=== PATIENT | female | born 1980 | race African-American/Black ===

== ENCOUNTER 2020-08-24 02:41 | Emergency (ER) | payer MEDICAID ==
[~2020-08-24] VITALS: Ht 149.9 cm; Wt 64.0 kg
[2020-08-24] MEDS ORDERED: SODIUM CHLORIDE 0.9% 1,000 ML IV ONE (06:13)
[2020-08-24 07:15] LABS: BASOPHILS % 0.7 % (0.0-2.0); EOSINOPHILS % 1.1 % (0.0-5.0); HEMATOCRIT. 40.1 % (36.0-48.0); HEMOGLOBIN. 12.9 g/dL (12.0-16.0); LYMPHOCYTES % 31.5 % (20.0-50.0); MEAN CORPUSCULAR HEMOGLOBIN 24.9 pg (28.0-32.0); MEAN CORPUSCULAR VOLUME 77.4 fL (81.0-99.0); MEAN PLATELET VOLUME 8.1 fl (7.4-10.4); MONOCYTES % 5.2 % (2.0-8.0); NEUTROPHILS % 61.5 % (40.0-76.0); PLATELET 352 x1000/uL (130-400); RED BLOOD CELL COUNT 5.18 mill/uL (4.2-5.4); RED CELL DISTRIBUTION WIDTH 15.3 % (11.6-14.6)
[2020-08-24 07:24] LABS: CHLORIDE 110 mEq/L (98-107)
[2020-08-24] MEDS ORDERED: LIDOCAINE HCL/PF 1% 10 MG/ML 5ML VIAL IJ ONE (07:30)
[2020-08-24] MEDS ORDERED: TETANUS, DIPHTHERIA, PERTUSSIS VAC/PF 0.5ML (>7YR OLD) IM ONE (07:30)
[2020-08-24 07:32] LABS: ETHANOL BLOOD 184 mg/dL
[2020-08-24 07:43] LABS: HCG SCREEN NEGATIVE
[2020-08-24 08:07] LABS: *BARBITURATES SCREEN URINE NEGATIVE (NEGATIVE)
[2020-08-24 08:08] LABS: *BENZODIAZEPINES SCREEN URINE NEGATIVE (NEGATIVE); *COCAINE SCREEN URINE NEGATIVE (NEGATIVE); METHADONE URINE SCREEN NEGATIVE (NEGATIVE); OPIATES URINE SCREEN NEGATIVE (NEGATIVE); PHENCYCLIDINE URINE SCREEN NEGATIVE (NEGATIVE)
[2020-08-24 08:15] LABS: *AMPHETAMINES SCREEN URINE PRESUMTIVE POSITIVE (NEGATIVE); CANNABINOID URINE SCREEN PRESUMTIVE POSITIVE (NEGATIVE)
[2020-08-24] MEDS ORDERED: BACITRACIN ZINC OINT UDPKT TOP ONE (08:15)
[2020-08-24 09:30] VITALS: BP 113/69
== END 2020-08-24 09:37 | disposition home or self-care (01) ==
LOC: ER 02:41
DX: S01.511A Laceration without foreign body of lip, initial encounter (principal); F15.10 Other stimulant abuse, uncomplicated; F10.129 Alcohol abuse with intoxication, unspecified; Y90.6 Blood alcohol level of 120-199 mg/100 ml; W18.39XA Other fall on same level, initial encounter; Y93.89 Activity, other specified; Y92.89 Other specified places as the place of occurrence of the external cause; Y99.8 Other external cause status
CPT/HCPCS: 12011; 36415; 70450; 70486; 80053; 80305; 80320; 81025; 84484; 84703; 85025; 90715; 96360; 96361; 99285; J3490; J7030; G0480

== ENCOUNTER 2020-08-29 20:30 | Emergency (ER) | payer MEDICAID ==
[~2020-08-29] VITALS: Ht 149.9 cm; Wt 64.0 kg
[2020-08-29 22:13] VITALS: BP 121/78
== END 2020-08-29 22:18 | disposition home or self-care (01) ==
LOC: ER 20:30
DX: S01.511D Laceration without foreign body of lip, subsequent encounter (principal); F15.10 Other stimulant abuse, uncomplicated; X58.XXXD Exposure to other specified factors, subsequent encounter
CPT/HCPCS: 99281

== ENCOUNTER 2025-11-14 08:02 | Emergency (ER) | payer MEDICAID ==
[~2025-11-14] VITALS: Ht 149.9 cm; Wt 72.0 kg
[2025-11-14 08:06] VITALS: O2SAT 100
[2025-11-14 08:51] LABS: CLARITY URINE CLOUDY (CLEAR); COLOR URINE YELLOW (YELLOW); GLUCOSE URINE NEGATIVE (NEGATIVE); KETONES URINE NEGATIVE (NEGATIVE); LEUKOCYTE ESTERASE URINE 3+ (NEGATIVE); NITRITE URINE NEGATIVE (NEGATIVE); OCCULT BLOOD URINE 2+ (NEGATIVE); PH URINE 5.5 (4.5-8.0); PROTEIN URINE 1+ (NEGATIVE); SPECIFIC GRAVITY URINE 1.012 (1.005-1.030); UROBILINOGEN URINE 0.2 E.U./dL (0.2-1.0)
[2025-11-14 09:03] LABS: MUCUS URINE 2+ /lpf (< = 2+); SQUAMOUS EPITHELIAL CELL URINE 3+ /lpf (RARE/1+)
[2025-11-14 09:04] LABS: BACTERIA URINE 3+; RBC URINE 25-50 /hpf (0-2); WBC URINE 25-50 /hpf (0-2)
[2025-11-14] MEDS ORDERED: CEFP200T13 MT (09:19)
[2025-11-14 09:34] VITALS: BP 144/88; PULSE 95; RESP 17; TEMP 36.7; O2SAT 100
== END 2025-11-14 09:36 | disposition home or self-care (01) ==
LOC: ER 08:02
DX: N39.0 Urinary tract infection, site not specified (principal); R10.30 Lower abdominal pain, unspecified
CPT/HCPCS: 81003; 81025; 87077; 87186; 99283